=== PATIENT | female | born 2000 | race Caucasian/White ===

== ENCOUNTER 2019-04-15 14:40 | Emergency (ER) | payer OTHER, SELFPAY ==
[2019-04-15 14:43] VITALS: BP 162/89; PULSE 79; RESP 18; TEMP 36.9; O2SAT 97; BMI 33.6
--- NOTE | 2019-04-15 14:55 | RAD_ITS ---
STUDY: X-RAY CHEST REASON FOR EXAM: Female, 18 years old. Cough TECHNIQUE: 1 COMPARISON: None. FINDINGS: The lungs are clear and expanded. There is no demonstrated pleural abnormality. Normal size heart. Normal mediastinum and kamari. Normal visualized pulmonary arteries. Normal visualized aortic arch and descending thoracic aorta. There is kyphosis at the thoracolumbar junction. Normal visualized ribs, clavicles, and shoulders. There is no demonstrated abnormality of the visualized soft tissue structures of the upper abdomen. RAD/Chest PA and Lateral IMPRESSION: Kyphosis. No visualized focal infiltrate. Electronically Signed: Marla Garcia MD at 15:35 EDT Tel , Service support ,
--- NOTE | 2019-04-15 15:39 | ED.VISSUMM ---
- ER Visit Summary Date of Service: 04/15/19 Chief Complaint: [Cough History of present illness: The patient is a 18-year-old female presents to the emergency department complaint of a cough that started 2 months ago. Patient states that she was seen 4 days ago at urgent care and diagnosed with bronchitis and started on prednisone as well as an inhaler. Patient continues to just not feel well and has had low energy. She denies any sore throat or ear pain. Patient feels fatigued and just lightheaded at times. Patient coughing yellow phlegm at times. She denies recent travel or surgery. Denies any chest pain. Complains of mild dyspnea with exertion.] Physical Examination: [HEENT-PERRLA, EOMI. Cranial nerves II through XII grossly intact. TMs clear. Mucous membranes moist. No adenopathy. Cardiovascular-regular rate and rhythm without murmur or ectopy Lungs-clear to auscultation, chest wall stable without crepitus or subcu emphysema Abdomen-normoactive bowel sounds, soft, nontender, no rebound or rigidity, no peritoneal signs. Extremities-intact ?4, normal range of motion, normal pulses, atraumatic] Test Results: [Chest x-ray obtained was normal.] Emergency Department Course and Treatment: [Patient was started on Zithromax.] Treatment Plan: [She will be treated with Zithromax to cover any atypical bacteria Given the length of her symptoms. Patient to follow-up with primary care physician compensation coordinator for no doc within next 3 to 5 days.] Disposition: [Discharged home in stable condition. Patient advised to return if increasing shortness of breath or conditions worsen anyway.] Impression: [URI] This note was generated with [employer] dictation software. It may contain incorrect words, spelling, and punctuation that were not noted in review of the chart prior to signing ED Disposition - Plan for ED Patient: Referrals: Care Physician,No Primary [Primary Care Provider] -
--- NOTE | 2019-04-15 15:42 | ED.DEP ---
ED Disposition - Plan for ED Patient: Instructions: BRONCHITIS, Antiobiotic Treatment (Adult) Prescriptions: Azithromycin [Zithromax] 250 mg PO DAILY #4 tab Prescription Printed Referrals: Care Physician,No Primary [Primary Care Provider] - Gaby Bhatt MD [STAFF PHYSICIAN] - 3-5 Days
[2019-04-15] MEDS: Azithromycin 250 MG Tablet 500 MG PO (15:49)
== END 2019-04-15 16:05 | disposition home or self-care (01) ==
PROVIDERS: Emergency Provider Nurse Practitioner
DX: J06.9 Acute upper respiratory infection, unspecified (principal); F12.90 Cannabis use, unspecified, uncomplicated
CPT/HCPCS: 71046; 99283

== ENCOUNTER 2019-09-03 16:45 | Emergency (ER) | payer OTHER, SELFPAY ==
[2019-09-03 16:46] VITALS: BP 152/88; PULSE 82; RESP 18; TEMP 36.3; O2SAT 98; BMI 31.3
--- NOTE | 2019-09-03 16:54 | EKG12_ITS ---
Test Reason : SYNCOPE Blood Pressure : / mmHG Vent. Rate : 066 BPM Atrial Rate : 066 BPM P-R Int : 138 ms QRS Dur : 086 ms QT Int : 366 ms P-R-T Axes : 030 039 019 degrees QTc Int : 383 ms Sinus rhythm with marked sinus arrhythmia Otherwise normal ECG Confirmed by ABIODUN HUITRON, GLADYS ([id number]), videotape editor TATI GRAVES ([id number]) on 09/05/2019 1:47:34 PM Referred By: CIARA Confirmed By:GLADYS RASCON MD
--- NOTE | 2019-09-03 16:54 | CT_ITS ---
STUDY: CT BRAIN WITHOUT CONTRAST REASON FOR EXAM: Female, 19 years old. PASSED OUT AND HIT HEAD ON DESK RADIATION DOSAGE (If Supplied By Facility): CTDIvol = ( 44.99 ) mGy, DLP = ( 812.98 ) mGycm TECHNIQUE: Transaxial CT imaging of the brain was performed without administration of intravenous contrast material. Individualized dose optimization techniques were used for this CT. COMPARISON: No relevant priors. FINDINGS: Is a small calcified sebaceous cyst or a skin lesion in the left frontal region that measures 9.0 mm. Normal calvarium. Normal size ventricles and extra-axial spaces for the patient''s age. Normal white matter tracts of the cerebral hemispheres. Normal basal ganglia and thalami. Normal brainstem. Normal cerebellum. There is no intracranial hemorrhage. There are no findings of an acute ischemic infarction. Normal visualized paranasal sinuses. CT/Brain/Head without Contrast IMPRESSION: Normal unenhanced CT scan of the brain. Electronically Signed: Marla Garcia MD at 17:36 EST Tel , Service support ,
--- NOTE | 2019-09-03 16:57 | NURSING ---
NO OLD EKGS
[2019-09-03] MEDS: Ondansetron ODT 4 MG Tablet PO (17:02)
--- NOTE | 2019-09-03 17:04 | ED.VIS.GEN ---
History of Present Illness Chief Complaint: Syncope Informant: Patient Onset: Today Context: Sudden Onset Timing: Continuous Current Severity: Moderate Maximum Severity: Moderate Narrative: The patient presents to the emergency department after syncopal episode. Patient is a history of vasovagal syncope. She states whenever she sees blood or hears about something that is descriptive of bladder injury, she will pass out. She states that she suffered from this basically her whole life. She has had provocative cardiac testing and neurologic testing and no dangerous pathology has been found. She states today, she was in her normal state of health. She was listening to a pod cast that began to talk about a bloody seen. She states she got lightheaded and then passed out. She struck her head on her desk. She states she was nauseated which is new for her. She is also complaining of mild headache. She went to the [facility] and was sent here for more evaluation. Prior similar symptoms: Yes Recent Illness/Hospitalization: No Past Medical History - Allergies and Home Meds Allergies/Adverse Reactions: Allergies No Known Allergies Allergy (Verified 09/03/19 16:49) Primary Care Physician: Care Physician,No Primary [Primary Care Provider] - Prior records reviewed: Yes Past Medical History: - - Vasovagal syncope Surgical History: no surgical history Smoking Status: Never smoker Review of Systems General: Denies: Chills, Fever, Sweats Eyes: Denies: Visual changes - bilaterally, Diplopia ENT: Denies: Rhinorrhea, Sore throat Cardiovascular: Denies: Chest pain, Palpitations Respiratory: Denies: Dyspnea, Cough, Dyspnea on exertion Gastrointestinal: Reports: Nausea. Denies: Abdominal pain, Vomiting, Diarrhea, Melena, Hematochezia Genitourinary: Denies: Dysuria, Hematuria, Frequency Musculoskeletal: Denies: Back pain, Extremity Pain Skin: Denies: Rash, Wounds Neurological: Denies: Headache, Weakness, Numbness Physical Exam Vital Signs/Narrative: Vital Signs Temp Pulse Resp BP Pulse Ox 09/03/19 16:46 97.4 F L 82 18 152/88 H 98 Inital Vital Signs reviewed: Yes General: Well nourished, Well developed, No Acute Distress Head: Normocephalic, Trauma - Superficial contusion of the left forehead without step-off or deformity Eyes: Perrl, EOMI ENT: Moist mucous membranes, No rhinorrhea Neck: Supple, Nontender Cardiovascular: Regular rate, Regular rhythm, No murmurs Respiratory: No distress, CTA bilaterally, Chest nontender Abdomen: Soft, Nontender, Nondistended, Normal bowel sounds Back: Nontender, Normal Inspection Extremities: Nontender, No edema Skin: Normal color, No rash Neurological: Alert, Oriented x3, Cranial nerves II-XII grossly intact, Normal Strength, Normal Sensation Psychological: Normal affect, Normal Mood Diagnostic/Tx/Re-eval - EKG Initial EKG Interpretation: No Acute Injury Pattern, Sinus Arrythmia Prior: No Prior - Medical Decision Making The patient presents with a vasovagal event. She did strike her head. She did have a facial contusion. EKG was obtained which was sinus arrhythmia, otherwise normal intervals. There was no WPW. There was no prolonged QT. Patient underwent head CT which was negative for acute process. She was treated with Zofran with improvement. Given her history, I do feel that she is safe for outpatient therapy. Patient is comfortable with this plan of care. Impression 1. Concussion without loss of consciousness 2. Vasovagal syncope ED Disposition - Plan for ED Patient: Instructions: SYNCOPE, Vasovagal, CONCUSSION, No Wake Up Prescriptions: Ondansetron [Zofran Odt] 4 mg PO Q8H PRN PRN #10 tab PRN Reason: Nausea Prescription Printed Referrals: Care Physician,No Primary [Primary Care Provider] -
[2019-09-03 18:01] VITALS: PULSE 86; RESP 17; O2SAT 99
== END 2019-09-03 18:01 | disposition home or self-care (01) ==
LOC: ED 17:05
PROVIDERS: Emergency Provider Emergency Medicine
DX: S06.0X0A Concussion without loss of consciousness, initial encounter (principal); S00.83XA Contusion of other part of head, initial encounter; X58.XXXA Exposure to other specified factors, initial encounter; Y93.89 Activity, other specified; R55 Syncope and collapse
CPT/HCPCS: 70450; 93005; 99283